=== PATIENT | female | born 1995 | race American Indian/Alaskan Native ===

== ENCOUNTER 2017-04-23 22:36 | Emergency (ER) | payer MEDICAID ==
[2017-04-23] MEDS ORDERED: Albuterol 6.7 GM Inhaler INH ONE ×2 (22:37→23:51)
[2017-04-23] MEDS ORDERED: Albuterol/Ipratropium 3.0-0.5 MG/3 ML Neb Soln INH ONE (22:37)
[2017-04-23 22:58] VITALS: BP 108/74
[2017-04-23] MEDS ORDERED: Albuterol/Ipratropium 3.0-0.5 MG/3 ML Neb Soln NEB ONE (23:08)
[2017-04-23] MEDS ORDERED: Albuterol/Ipratropium 3.0-0.5 MG/3 ML Neb Soln ONE (23:14)
[2017-04-23] MEDS ORDERED: Benzonatate 100 MG Cap PO ONE (23:26)
[2017-04-23] MEDS ORDERED: predniSONE 20 MG Tab PO ONE (23:26)
--- NOTE | 2017-04-24 00:10 | EDM.PDOC ---
ED HPI GENERAL MEDICAL PROBLEM - General Chief Complaint: Respiratory Problem Stated Complaint: COUGH Time Seen by Provider: 04/23/17 23:05 Source of Information: Reports: Patient History Limitations: Reports: No Limitations - History of Present Illness INITIAL COMMENTS - FREE TEXT/NARRATIVE: c/o continued cough for one week, has been seen in clinic on saturday and today. No fever, Nasal congestion . Hx of seasonal allergy and reactive airway. Denies asthma. has been on inhalers in past. Non smoker. No sore throat or ear pain. - Related Data Allergies Allergy/AdvReac Type Severity Reaction Status Date / Time No Known Allergies Allergy Verified 07/26/16 10:05 Home Meds: Home Meds . [No Known Home Meds] 07/26/16 [History] Past Medical History - Past Health History Medical/Surgical History: Denies Medical/Surgical History Respiratory History: Reports: Asthma Psychiatric History: Reports: Anxiety Social & Family History - Tobacco Use Smoking Status *Q: Unknown Ever Smoked - Caffeine Use Caffeine Use: Reports: Coffee, Soda - Recreational Drug Use Recreational Drug Use: No ED ROS GENERAL - Review of Systems Review Of Systems: ROS reveals no pertinent complaints other than HPI. ED EXAM, GENERAL - Physical Exam Exam: See Below Exam Limited By: No Limitations General Appearance: Alert, Mild Distress Eye Exam: Bilateral Eye: EOMI Ears: Normal External Exam, Normal TMs Nose: Normal Inspection. No: Nasal Drainage Throat/Mouth: Normal Inspection, Normal Lips, Normal Oropharynx. No: Inflammation Head: Atraumatic, Normocephalic Neck: Normal Inspection. No: Lymphadenopathy (L), Lymphadenopathy (R) Respiratory/Chest: No Respiratory Distress, Normal Breath Sounds, Other ( occasional dry cough) Cardiovascular: Normal Peripheral Pulses, Regular Rate, Rhythm GI/Abdominal: Normal Bowel Sounds, Soft Extremities: Normal Inspection Neurological: Alert, Oriented Psychiatric: Normal Affect, Normal Mood Skin Exam: Warm, Dry, Intact, Normal Color Course - Vital Signs Last Recorded V/S: Last Vital Signs Temp 98.4 F 04/23/17 22:55 Pulse 97 04/23/17 22:55 Resp 20 04/23/17 22:55 BP 108/74 04/23/17 22:55 Pulse Ox 99 04/23/17 22:55 - Orders/Labs/Meds Orders: Active Orders 24 hr Category Date Time Status RT Aerosol Therapy [RC] ASDIRECTED Care 04/23/17 23:08 Active Meds: Medications Discontinued Medications Generic Name Dose Route Start Last Admin Trade Name Faustino PRN Reason Stop Dose Admin Albuterol Confirm 04/23/17 23:51 Proventil Hfa Administered 04/23/17 23:52 Dose 6.7 gm INH .STK-MED ONE Albuterol/Ipratropium 3 ml 04/23/17 23:08 04/23/17 23:15 Duoneb 3.0-0.5 Mg/3 Ml NEB 04/23/17 23:09 3 ml ONETIME ONE Administration Albuterol/Ipratropium Confirm 04/23/17 23:14 04/23/17 23:31 Duoneb 3.0-0.5 Mg/3 Ml Administered 04/23/17 23:15 Not Given Dose 3 ml .ROUTE .STK-MED ONE Benzonatate 200 mg 04/23/17 23:26 04/23/17 23:34 Tessalon Perles PO 04/23/17 23:27 200 mg ONETIME ONE Administration Prednisone 20 mg 04/23/17 23:26 04/23/17 23:34 Prednisone PO 04/23/17 23:27 20 mg ONETIME ONE Administration - Re-Assessments/Exams Free Text/Narrative Re-Assessment/Exam: 04/24/17 02:41 Slight improvement with neb treatment. Lung lange remain clear without wheeze. Patient notes unable to swallow pills. Prednisone crushed. Departure - Departure Time of Disposition: 00:01 Disposition: Home, Self-Care 01 Condition: Good Clinical Impression: Reactive airway disease Qualifiers: Asthma severity: mild intermittent Asthma complication type: with acute exacerbation Qualified Code(s): J45.21 - Mild intermittent asthma with (acute) exacerbation - Discharge Information Instructions: Upper Respiratory Infection, Adult, [id number] Forms: ED Department Discharge Additional Instructions: increase fluid intake, warm liquids- cold liquids may trigger more coughing albuterol inhaler 2 puffs every 4 hours as needed for cough robitussin per package instructions prednisone 20mg daily for 5 days - My Orders Last 24 Hours: My Active Orders 04/23/17 23:08 RT Aerosol Therapy [RC] ASDIRECTED - Assessment/Plan Last 24 Hours: My Active Orders 04/23/17 23:08 RT Aerosol Therapy [RC] ASDIRECTED
== END 2017-04-24 00:12 | disposition home or self-care (01) ==
LOC: DL.ED 22:36
DX: J45.21 Mild intermittent asthma with (acute) exacerbation (principal)
CPT/HCPCS: 94640; 99282; A9270

== ENCOUNTER 2017-10-16 13:46 | Emergency (ER) | payer MEDICAID ==
[2017-10-16 14:09] VITALS: BP 106/65
== END 2017-10-16 14:18 | disposition left against medical advice (07) ==
LOC: DL.ED 13:46
DX: Z53.21 Procedure and treatment not carried out due to patient leaving prior to being seen by health care provider (principal)
CPT/HCPCS: 99283

== ENCOUNTER 2022-01-26 15:06 | Emergency (ER) | payer BC, MEDICAID ==
[2022-01-26] MEDS ORDERED: Omeprazole 20 MG Cap.CR PO ONE (15:07)
[2022-01-26 15:21] VITALS: BP 120/102; PULSE 107
[2022-01-26] MEDS ORDERED: Omeprazole 20 MG Cap.CR ONE (17:18)
== END 2022-01-26 17:15 | disposition home or self-care (01) ==
LOC: DL.ED 15:06
DX: R05.3 Chronic cough (principal); K21.00 Gastro-esophageal reflux disease with esophagitis, without bleeding
CPT/HCPCS: 71046; 81025; 99283-25; A9270-GY

== ENCOUNTER 2023-01-21 14:47 | Emergency (ER) | payer MEDICAID ==
[2023-01-21 17:37] VITALS: BP 116/62; PULSE 92
== END 2023-01-21 17:37 | disposition home or self-care (01) ==
LOC: DL.ED 14:47
DX: F39 Unspecified mood [affective] disorder (principal); R45.851 Suicidal ideations; J45.909 Unspecified asthma, uncomplicated
CPT/HCPCS: 99284

== ENCOUNTER 2023-01-28 17:53 | Emergency (ER) | payer MEDICAID | END 2023-01-28 18:34 | disposition left against medical advice (07) | LOC: DL.ED 17:53 | DX: Z53.21 Procedure and treatment not carried out due to patient leaving prior to being seen by health care provider (principal) ==